=== PATIENT | female | born 1955 | race Caucasian/White ===

== ENCOUNTER 2017-04-17 02:30 | Emergency (ER) | payer OTHER ==
[~2017-04-17] VITALS: Ht 157.5 cm; Wt 86.2 kg
[2017-04-17 02:54] VITALS: BP 191/96
--- NOTE | 2017-04-17 02:57 | NUR ---
AMBULATED TO ER BED 4
[2017-04-17] MEDS ORDERED: LISI-420 PO (03:04)
[2017-04-17] MEDS ORDERED: ACET-2869 PO (03:04)
[2017-04-17] MEDS ORDERED: METF500T PO (03:04)
--- NOTE | 2017-04-17 03:07 | NUR ---
CAME BY BEDSIDE TO EVALUATE PATIENT.
[2017-04-17] MEDS ORDERED: NACL 0.9% 1,000 ML IV ONE (03:15)
[2017-04-17] MEDS ORDERED: ONDANSETRON 4 MG/2 ML VIAL IVP ONE (03:15)
[2017-04-17] MEDS ORDERED: MORPHINE SULFATE 4 MG/ML SYR IVP ONE (03:15)
--- NOTE | 2017-04-17 03:20 | NUR ---
GAUGE 20 IV LINE ESTABLISHED TO THE LEFT HAND. BLOOD DRAWN, WILL SEND TO THE LAB.
--- NOTE | 2017-04-17 03:30 | NUR ---
URINE SPECIMEN COLLECTED AND SENT TO THE LAB.
[2017-04-17 03:41] LABS: HEMATOCRIT 38.6 % (36-48); HEMOGLOBIN 12.7 g/dL (12.0-16.0); MEAN CORPUSCULAR HEMOGLOBIN 28 pg (27-31); MEAN CORPUSCULAR HGB CONC 33 g/dL (33-37); MEAN CORPUSCULAR VOLUME 86 fL (80-94); PLATELET COUNT (AUTO) 171 K/uL (140-450); RED BLOOD CELL COUNT(AUTO) 4.51 MIL/uL (4.20-5.40); RED CELL DISTRIBUTION WIDTH 12.7 % (11.6-13.7); WHITE BLOOD COUNT (AUTO) 6.3 K/uL (4.8-10.8)
[2017-04-17 03:43] LABS: APPEARANCE,URINE CLEAR (CLEAR); BILIRUBIN,URINE NEGATIVE (NEGATIVE); BLOOD, URINE NEGATIVE (NEGATIVE); COLOR,URINE YELLOW (YELLOW); LEUKOCYTE ESTERASE ,URINE NEGATIVE (NEGATIVE); NITRITE, URINE NEGATIVE (NEGATIVE); UGLUCOSE NEGATIVE (NEGATIVE)
--- NOTE | 2017-04-17 03:45 | NUR ---
NS 1LITER BOLUS,MORPHINE 4 MG IVP AND ZOFRAN 4 MG IVP GIVEN ORDERED. PT. HOOKED TO THE MONITOR.
[2017-04-17 03:51] LABS: RBC,URINE 0-5 (RARE) /HPF (0-5); WBC,URINE 0-5 (RARE) /HPF (0-5)
--- NOTE | 2017-04-17 03:57 | NUR ---
WENT FOR CT SCAN OF ABDOMEN AND PELVIS VIA WHEELCHAIR.
[2017-04-17 03:58] LABS: ALBUMIN 3.9 g/dL (3.4-5.0); ANION GAP 14.1 (8-16); CARBON DIOXIDE 27.6 mmol/L (21-32); CREATININE 0.7 mg/dL (0.6-1.3); POTASSIUM 3.7 mmol/L (3.5-5.1)
[2017-04-17 04:00] LABS: EOSINOPHILS % (MANUAL) 1 % (0-4); LYMPHOCYTES % (MANUAL) 31 % (20-46); MONOCYTES % (MANUAL) 6 % (5-12)
--- NOTE | 2017-04-17 04:08 | NUR ---
BACK FROM CT SCAN.
[2017-04-17] MEDS ORDERED: DICYCLOMINE HCL LIQUID 10 MG/5 ML UDC PO ONE (04:25)
[2017-04-17] MEDS ORDERED: LIDOCAINE VISCOUS 2% 20 ML UDC PO ONE (04:25)
[2017-04-17] MEDS ORDERED: ALUMINUM HYD/MAG/SIMETHICONE 30 ML UDC PO ONE (04:25)
--- NOTE | 2017-04-17 04:37 | NUR ---
COMPLAINED OF NON-RELIEF OF PAIN, NOTIFIED. G.I.COCKTAIL GIVEN. SEE EMAR.
[2017-04-17] MEDS ORDERED: HYDROmorphone 1 MG/ML AMP IVP ONE (05:10)
--- NOTE | 2017-04-17 05:12 | NUR ---
COMPLAINED OF NON-RELIEF OF PAIN AFTER G.I.COCKTAIL. MD NOTIFIED. DILAUDID 1 MG IVP GIVEN ORDERED. VS REMAIN STABLE.
--- NOTE | 2017-04-17 05:30 | NUR ---
PATIENT NOTED TO BE DIAPHORETIC,COLD CLAMMY. SAO2=60'S% PT.PLACED ON O2 @ 2LPM VIA NC. ACCUCHECK MGPM=677. TEMP=98.4 SC=569/68 HR=81 RR=14 PAIN=8/10. SAO2 IMPROVED TO 96% ON OXYGEN. WILL CLOSELY MONITOR.
[2017-04-17] MEDS ORDERED: ONDANSETRON 4 MG TAB PO ONE (06:35)
--- NOTE | 2017-04-17 06:39 | NUR ---
PT. DISCHARGED BY MD BUT VOMITED. AFTER CHANGING TO HER CLOTHES. MD NOTIFIED. ZOFRAN 4 MG ODT GIVEN ORDERED.
--- NOTE | 2017-04-17 06:45 | NUR ---
Patient discharged by with v/s stable. Written and verbal after care instructions given and explained. Patient alert, oriented and verbalized understanding of instructions. Ambulatory with steady gait. All questions addressed prior to discharge. ID band removed. Patient advised to follow up with PMD. Rx of MYLANTA given. Patient educated on indication of medication including possible reaction and side effects. Opportunity to ask questions provided and answered.
[2017-04-17 06:49] VITALS: BP 149/82
== END 2017-04-17 06:45 | disposition home or self-care (01) ==
LOC: MED 02:30
DX: K59.00 Constipation, unspecified (principal); E11.9 Type 2 diabetes mellitus without complications; I10 Essential (primary) hypertension
CPT/HCPCS: 36415; 74176; 80053; 81001; 82948; 85025; 96361; 96374; 96375; 99285; J1170; J2270; J2405; J7030; Q0162

== ENCOUNTER 2018-08-24 11:22 | Emergency (ER) | payer OTHER ==
[~2018-08-24] VITALS: Ht 162.6 cm; Wt 68.0 kg
[~2018-08-24 11:22] MED LIST: HYDR-5122 PO; LISI-420 PO; METF500T PO
--- NOTE | 2018-08-24 11:22 | NUR ---
PATIENT BIBA TO BED 2 AT THIS TIME.
[2018-08-24 11:30] VITALS: BP 145/87
--- NOTE | 2018-08-24 11:39 | NUR ---
63Y/F BIB EMS WITH C/O FEVER AND VOMITING, DRY HEAVING, SORE THROAT AND NECK PAIN EARLIER TODAY; ORAL TEMP 99.3. PT IS AAOX4, VSS, EVEN AND UNLABORED BREATHING, NO VOMITING AT THIS TIME, WARM TO TOUCH, BED LOW, LOCKED, BEDRAIL UP X1, ER MD AWARE AND NOTIFIED OF PT STATUS. HX; DM, HTN, RX; LISINOPRIL, GLUCOPHAGE, NORCO
--- NOTE | 2018-08-24 11:45 | NUR ---
Patient being evaluated by dr. mantilla at bedside.
--- NOTE | 2018-08-24 12:10 | NUR ---
swab done and given to lab lady junior
[2018-08-24] MEDS ORDERED: MECLIZINE 25 MG TAB PO ONE (12:50)
[2018-08-24] MEDS ORDERED: NACL 0.9% 1,000 ML IV ONE (12:50)
--- NOTE | 2018-08-24 12:53 | NUR ---
PATIENT TAKEN VIA GURNEY FOR CT SCAN.
[2018-08-24 13:39] LABS: BASOPHILS % (AUTO) 0.2 % (0.0-2.0); EOSINOPHILS % (AUTO) 0.1 % (0.0-4.0); HEMATOCRIT 37.9 % (36-48); HEMOGLOBIN 12.4 g/dL (12.0-16.0); LYMPHOCYTES # (AUTO) 0.5 K/uL (2.5-16.5); LYMPHOCYTES % (AUTO) 4.8 % (20.5-51.1); MEAN CORPUSCULAR HEMOGLOBIN 28 pg (27-31); MEAN CORPUSCULAR HGB CONC 33 g/dL (33-37); MEAN CORPUSCULAR VOLUME 85.8 fL (80-94); MONOCYTES # (AUTO) 0.6 K/uL (0.8-1.0); MONOCYTES % (AUTO) 6.3 % (1.7-9.3); NEUTROPHILS # (AUTO) 8.4 K/uL (1.8-7.7); NEUTROPHILS % (AUTO) 88.6 % (42.2-75.2); PLATELET COUNT (AUTO) 158 K/uL (140-450); RED BLOOD CELL COUNT(AUTO) 4.41 MIL/uL (4.20-5.40); RED CELL DISTRIBUTION WIDTH 13.1 % (11.6-13.7); WHITE BLOOD COUNT (AUTO) 9.5 K/uL (4.8-10.8)
[2018-08-24 13:54] LABS: ANION GAP 11.3 (8-16); CREATININE 0.8 mg/dL (0.6-1.3); POTASSIUM 3.3 mmol/L (3.5-5.1)
[2018-08-24 14:08] LABS: ALBUMIN 3.7 g/dL (3.4-5.0); TOTAL BILIRUBIN 1.1 mg/dL (0.0-1.0)
[2018-08-24] MEDS ORDERED: LORazepam 2 MG/ML VIAL IVP ONE (14:55)
--- NOTE | 2018-08-24 15:50 | NUR ---
Patient discharged with v/s stable. Written and verbal after care instructions given and explained. Patient alert, oriented and verbalized understanding of instructions. Wheel Chair Assisted with to car. All questions addressed prior to discharge. ID band removed. Patient advised to follow up with PMD. Rx of MECLIZINE HYDROCHLORIDE given. Patient educated on indication of medication including possible reaction and side effects. Opportunity to ask questions provided and answered.
[2018-08-24 15:52] VITALS: BP 109/57
--- NOTE | 2018-08-27 07:46 | NUR ---
IV FLUIDS were stopped at 1545. before the patient was discharged.
== END 2018-08-24 15:50 | disposition home or self-care (01) ==
LOC: MED 11:22
DX: R42 Dizziness and giddiness (principal); M79.10 Myalgia, unspecified site; J02.9 Acute pharyngitis, unspecified; R11.2 Nausea with vomiting, unspecified; E11.9 Type 2 diabetes mellitus without complications; I10 Essential (primary) hypertension; Z79.84 Long term (current) use of oral hypoglycemic drugs
CPT/HCPCS: 36415; 70450; 80053; 82948; 85025; 87804; 96361; 96374; 99284; J2060; J7030; J8597

== ENCOUNTER 2021-06-19 01:01 | Emergency (ER) | payer OTHER ==
[~2021-06-19] VITALS: Ht 160 cm; Wt 90.7 kg
[~2021-06-19 01:01] MED LIST changes: -LISI-420 PO; +LISI-487 PO
[2021-06-19 01:17] VITALS: BP 128/72
--- NOTE | 2021-06-19 01:25 | NUR ---
PATIENT WHEELED TO BED 7
--- NOTE | 2021-06-19 01:25 | NUR ---
Hema jacques in [facility] - 06/19/21 at 0132 by MCKENNA PATIENT WHEELED TO BED 8
[2021-06-19] MEDS ORDERED: IBUPROFEN 800 MG TAB PO ONE (01:50)
[2021-06-19] MEDS ORDERED: LORazepam 1 MG TAB PO ONE (01:50)
[2021-06-19] MEDS ORDERED: IBUP-2218 PO (03:48)
[2021-06-19 03:55] VITALS: BP 132/72
--- NOTE | 2021-06-19 03:57 | NUR ---
PATIENT DC HOME STABLE NOT COMPLAINING OF PAIN AT THIS TIME VITALS SIGNS IN NORMAL LIMITS ALL DC INSTRUTION GAVE TO THE PATIENT AND EXPLAINED //Clarence RN
== END 2021-06-19 03:57 | disposition home or self-care (01) ==
LOC: MED 01:01
DX: M25.522 Pain in left elbow (principal); E11.9 Type 2 diabetes mellitus without complications; I10 Essential (primary) hypertension; Z79.84 Long term (current) use of oral hypoglycemic drugs; Z79.899 Other long term (current) drug therapy; W01.0XXA Fall on same level from slipping, tripping and stumbling without subsequent striking against object, initial encounter; Y93.89 Activity, other specified; Y92.89 Other specified places as the place of occurrence of the external cause; Y99.8 Other external cause status
CPT/HCPCS: 73080; 99283; Q0092

== ENCOUNTER 2023-11-07 14:10 | Emergency (ER) | payer MEDICAID, OTHER ==
[~2023-11-07] VITALS: Ht 165.1 cm; Wt 89.0 kg
[~2023-11-07 14:10] MED LIST changes: +IBUP-2218 PO; +METF-346 PO; -METF500T PO
[2023-11-07 14:22] VITALS: BP 159/81; PULSE 79; RESP 17; TEMP 98.4; O2SAT 96
[2023-11-07] MEDS ORDERED: CYCL-711 PO (16:33)
[2023-11-07] MEDS ORDERED: IBUP-2218 PO (16:33)
[2023-11-07] MEDS ORDERED: DICL20GE TP (16:33)
[2023-11-07] MEDS: IBUPROFEN 600 MG TAB PO ONE (16:48)
[2023-11-07] MEDS: LIDOCAINE 5% 1 EA PATCH TP ONE (16:49)
== END 2023-11-07 16:51 | disposition home or self-care (01) ==
LOC: MED 14:10
DX: G44.86 Cervicogenic headache (principal); M62.838 Other muscle spasm; I10 Essential (primary) hypertension; E11.9 Type 2 diabetes mellitus without complications; Z79.4 Long term (current) use of insulin; Z79.899 Other long term (current) drug therapy
CPT/HCPCS: 99283